=== PATIENT | male | born 1990 ===

== ENCOUNTER 2024-01-28 14:53 | Emergency (ER) | payer BC, SELFPAY ==
--- NOTE | ~2024-01-28 | XR_ITS ---
EXAMINATION: XR elbow LT min 3V DATE: 01/28/2024 15:53 INDICATION: Left elbow injury and pain. TECHNIQUE: 3 views of left elbow were obtained. COMPARISON: None. FINDINGS: Bone alignment is normal. There is a comminuted fracture involving head and neck of proxima l radius. The main distal fracture fragment demonstrates 11 degrees volar angulation. 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 No elbow joint effusion. IMPRESSION: 1. Comminuted fracture of radial head and neck. Reviewed, dictated and finalized at location A.
[2024-01-28 15:09] VITALS: BP 147/79; PULSE 62; RESP 21; TEMP 36.4; O2SAT 100
[2024-01-28] MEDS: KETOROLAC (*BKC) 60 MG/2 ML VIAL IM (17:31)
[2024-01-28] MEDS: HYDROcodone/acetaminophen (*CRX) 5-325 MG TABLET 1 TAB PO (17:31)
--- NOTE | 2024-01-28 17:56 | ED.UPPEXIN ---
HPI - Extremity Injury (Upper) General Chief Complaint: Extremity Injury, Upper Stated Complaint: Left upper arm injury Time Seen by Provider: 01/28/24 16:55 Source: patient Mode of arrival: ambulatory Limitations: no limitations History of Present Illness HPI narrative: Patient is a 33-year-old male who presents ED with report of a left elbow pain. Patient reports he was moving an tripped and fell out of the [employer], landed directly on his left elbow. Denies significant head injury or LOC. Sustained an abrasion to his right knee, but denies pain. Reports significant pain to left elbow. Limited range of motion. Denies numbness or tingling. Related Data Allergies Allergy/AdvReac Type Severity Reaction Status Date / Time No Known Allergies Allergy Verified 01/28/24 14:56 Review of Systems Review of Systems: CONSTITUTIONAL: Denies fever, chills, or sweats. MUSCULOSKELETAL: See HPI. NEUROLOGIC: Denies headache, dizziness, numbness, or weakness. All systems reviewed & are unremarkable except as noted in HPI and below Exam Narrative: GENERAL: Well appearing, well-nourished, non-toxic, in no acute distress. HEAD: Normocephalic, atraumatic. RESPIRATORY: Airway patent, respirations nonlabored. CARDIOVASCULAR: Regular rate and rhythm without murmurs, rubs, or gallops. Radial pulses intact. MUSCULOSKELETAL: Moves all extremities. Limited range of motion of left elbow flexion and extension due to pain. Moderate tenderness throughout left elbow joint, worse medially along medial epicondyle. Mild swelling noted. No wounds or abrasions. Sensation intact throughout left upper extremity. Small abrasion to right medial knee without active bleeding. SKIN: Warm, dry, normal color. NEURO: A&O X3. Speech clear. Cranial nerves II-XII grossly intact. Steady gait. No ataxic movements. PSYCHIATRIC: Appropriate mood and affect. Normal interaction. Course Vital Signs Vital signs: Vital Signs Temperature 97.5 F L 01/28/24 15:09 Pulse Rate 62 01/28/24 15:09 Respiratory Rate 21 H 01/28/24 15:09 Blood Pressure 147/79 H 01/28/24 15:09 Pulse Oximetry 100 01/28/24 15:09 Temperature 97.5 F L 01/28/24 15:09 Pulse Rate 62 01/28/24 15:09 Respiratory Rate 21 H 01/28/24 15:09 Blood Pressure 147/79 H 01/28/24 15:09 Pulse Oximetry 100 01/28/24 15:09 MDM - Extremity Injury (Upper) MDM Narrative Medical decision making narrative: Patient?s injury is consistent with musculoskeletal etiology. No signs of neurologic or vascular compromise on physical examination. Compartments are soft without signs of compartment syndrome. XR showing comminuted fracture of radial head and neck. Pain is consistent with exam and injury. Discussed case with Dr. Combs, orthopedics, recommended posterior long-arm splint with elbow at 90?. Patient given sling for comfort and support. Will be discharged to follow-up with orthopedics as an outpatient. Patient is in agreement with this plan. He lives in [place], but would like to follow-up with orthopedics here. Given on-call information. Will send pain medication to pharmacy. Given return precautions. He agrees with plan. Discharged in stable condition. Medical Records Attestation: I reviewed the patient's medical records. Imaging Data Attestation: I personally reviewed and interpreted this imaging study as follows: Radiologist's impression: ITS Impressions Elbow X-Ray 01/28/24 15:53 IMPRESSION: 1. Comminuted fracture of radial head and neck. Discharge Plan Discharge Clinical Impression: Fracture of head of left radius Qualifiers: Encounter type: initial encounter Fracture type: closed Fracture alignment: nondisplaced Qualified Code(s): S52.125A - Nondisplaced fracture of head of left radius, initial encounter for closed fracture Closed fracture of neck of left radius Qualifiers: Encounter type: initial encounter Fracture alignment: no
[2024-01-28 18:40] VITALS: BP 140/78; PULSE 57; RESP 18; TEMP 36.3; O2SAT 98
== END 2024-01-28 18:42 | disposition home or self-care (01) ==
PROVIDERS: Emergency Provider Physician Assistant
DX: S52.125A Nondisplaced fracture of head of left radius, initial encounter for closed fracture (principal); S52.135A Nondisplaced fracture of neck of left radius, initial encounter for closed fracture; W17.89XA Other fall from one level to another, initial encounter
CPT/HCPCS: 29105; 73080; 96372; 99284; A4565; A9270; J1885